=== PATIENT | female | born 1990 | race Caucasian/White ===

== ENCOUNTER 2023-10-16 09:30 | Outpatient (CLI) | payer OTHER ==
[~2023-10-16] VITALS: Ht 162.6 cm; Wt 98.6 kg
--- NOTE | 2023-10-16 06:25 | NUR ---
Pt arrived on unit ambulatory for scheduled induction of labor. Pt denies any regular contractions, leaking of fluid or vaginal bleeding and reports normal movement. EFM and toco monitors started. Vitals signs WNL. Plan of care for induction reviewed with pt and at the bedside.
[2023-10-16 07:00] VITALS: BP 131/87; PULSE 100
[2023-10-16 08:21] LABS: BASO # 0.1 K/mm3 (0.0-0.2); BASO % 0.9 % (0.0-2.0); EOS # 0.3 K/mm3 (0.0-0.7); EOS % 3.5 % (0.0-4.0); HEMOGLOBIN 11.7 g/dl (12.5-16.0); LYMPH # 2.2 K/mm3 (1.2-3.4); LYMPH % 26.5 % (20.0-51.0); MEAN CELL VOLUME 90 fl (80.0-100.0); MEAN CORPUSCULAR HEMOGLOBIN 29 pg (27-31); MEAN CORPUSCULAR HGB CONC 33 g/dl (33.0-37.0); MEAN PLATELET VOLUME 10.3 fl (7.4-10.4); MONO # 0.6 K/mm3 (0.1-0.6); MONO % 7.6 % (1.7-9.3); PLATELET COUNT 193 K/mm3 (130-400); REDCELL DISTRIBUTION WIDTH-CV 14.2 % (11.5-14.5)
--- NOTE | 2023-10-16 08:35 | NUR ---
Pt off EFM to the bathroom. Dr. Batista on the unit. FHR tracing reviewed. Update given with late start to pitocin infusion due to difficult IV start.
--- NOTE | 2023-10-16 08:42 | NUR ---
Dr. Batista at the bedside. SVE done. Bedside US done due to feeling a firm presenting part but unable to confirm vertex. Pitocin stopped. Dr. Batista reviewed options of attempting an external version or proceeding with a . Pt verbalized an understanding and requests to attempt a version.
--- NOTE | 2023-10-16 09:13 | NUR ---
0913- Dr. Batista at the bedside. Terbutaline given as ordered. See EMAR for details. Pt off EFM. 0914- Version attempted. 20- Version not successful but pt tolerated well. EFM started. Dr. Batista remained at the bedside and reviewed plan of care for monitoring for 30 mins post procedure and gave the option to discharge home with follow up in clinic or proceed with a today. Pt verbalized her request to discharge home and follow up in clinic. This RN and charge nurse remain at the bedside monitoring FHR tracing and audible movement noted. Signs of labor and when to return to the hospital reviewed with pt and . Both verbalized an understanding.
[2023-10-16 09:15] VITALS: TEMP 98.4
[2023-10-16 09:30] VITALS: BP 142/72; PULSE 79
[~2023-10-16 09:30] MED LIST: PRENATAL; PREVACID24HROTC
[2023-10-16 09:45] VITALS: BP 131/78; PULSE 75
[2023-10-16 10:00] VITALS: BP 132/74; PULSE 81
--- NOTE | 2023-10-16 10:25 | NUR ---
Discharge instructions, follow up care and labor precautions reviewed with pt and at the bedside. Both verbalized an understanding, agreed with plan and states no questions or concerns at this time.
== END 2023-10-16 10:25 | disposition home or self-care (01) ==
LOC: LDRO 09:30 → EDSTATUS 11:14 → OB 15:25
PROVIDERS: Obstetrics & Gynecology
DX: O32.1XX0 Maternal care for breech presentation, not applicable or unspecified (principal); Z3A.39 39 weeks gestation of pregnancy
CPT/HCPCS: J2590; J3105; J7120

== ENCOUNTER 2023-10-20 11:26 | Inpatient (IN) | payer OTHER ==
[~2023-10-20] VITALS: Ht 162.6 cm; Wt 98.6 kg
[2023-10-20] VITALS (19 sets, daily range): BP systolic 111–139; BP diastolic 59–92; PULSE 71–97; TEMP 97.7–98.7
--- NOTE | 2023-10-20 11:30 | NUR ---
265825.5, G3L2 arrives on unit with c/o of worsening ctx. Pt reports ctx started at 0400, and have become more intense over last 2 hours. Denies any LOF, or VB. Reports normal movement. 1134EFM placed by Angella Reyes RN and tracing well. Dr. Weaver on unit and to bedside. Bedside US by Dr. Weaver, cephalic presentation. SVE by provder /-1. AROM by SVE for thick meconium fluid. Ade care provided. Pt wedge left. Pt requesting epidural. 1145IV to left hand by Angella Reyes RN. IVF infusing. 1155Lab at bedside and labs drawn. Assessment completed. Consent forms explained and signed. 1220Page. Harmeet JEWEL STAKER at bedside for epidural placement. Pt to edge of bed. FRH tracing intermittently due to maternal position and habitus. 1240Epidural placed and test dose at this time by Garry Ga CRNA. Pt repositioned wedge left. Plan of care and safety precautions reviewed. Pt verbalizes understandig. Call light within reach. Questions invited and answered.
[2023-10-20] MEDS ORDERED: LR & Oxytocin 500 ML IV SCH (12:00)
[2023-10-20] MEDS ORDERED: LR 1,000 ML IV SCH (12:00)
[2023-10-20 12:17] LABS: BASO # 0.1 K/mm3 (0.0-0.2); BASO % 0.8 % (0.0-2.0); EOS # 0.3 K/mm3 (0.0-0.7); EOS % 3.7 % (0.0-4.0); GRAN # 5.4 K/mm3 (1.4-6.5); GRAN % 62.5 % (42.2-75.2); HEMOGLOBIN 11.5 g/dl (12.5-16.0); LYMPH # 2.1 K/mm3 (1.2-3.4); LYMPH % 23.7 % (20.0-51.0); MEAN CELL VOLUME 87 fl (80.0-100.0); MEAN CORPUSCULAR HEMOGLOBIN 29 pg (27-31); MEAN CORPUSCULAR HGB CONC 34 g/dl (33.0-37.0); MEAN PLATELET VOLUME 10.5 fl (7.4-10.4); MONO # 0.8 K/mm3 (0.1-0.6); MONO % 8.8 % (1.7-9.3); PLATELET COUNT 198 K/mm3 (130-400); RED BLOOD COUNT 3.95 M/mm3 (4.10-5.30); REDCELL DISTRIBUTION WIDTH-CV 14.2 % (11.5-14.5)
[2023-10-20] MEDS ORDERED: ROPivacaine PF 0.2% 200 ML IV ONE (12:21)
[2023-10-20 12:22] LABS: HEMATOCRIT 34.3 % (37.0-47.0)
[2023-10-20 12:26] LABS: ALBUMIN 2.8 gm/dL (3.5-5.0); BILIRUBIN,TOTAL 0.8 mg/dL (0.2-1.2); CALCIUM 8.8 mg/dL (8.4-10.2); CREATININE, serum 0.64 mg/dL (0.57-1.11); POTASSIUM 3.9 mmol/L (3.5-4.5); TOTAL PROTEIN 6.1 gm/dL (6.2-8.1)
[2023-10-20] MEDS ORDERED: Naloxone 0.4 MG/ML VIAL IV PRN ×2 (12:30→14:15)
[2023-10-20] MEDS ORDERED: diphenhydrAMINE 25 MG CAP PO PRN (12:30)
[2023-10-20] MEDS ORDERED: ePHEDrine 50 MG/10 ML VIAL IV PRN (12:30)
[2023-10-20] MEDS ORDERED: diphenhydrAMINE 50 MG/ML 1 ML VIAL IV PRN (12:30)
[2023-10-20] MEDS ORDERED: Ondansetron 4 MG/2 ML VIAL IV PRN (12:30)
--- NOTE | 2023-10-20 13:19 | NUR ---
1319SVE by Dr. Weaver /+2. Pt repostioned. Dr. Weaver remains on unit. 1405SVE by Dr. Weaver +3. Pt guided on pushing with contrations. 1406Pt pushes with one contraction with spontaneous vaginal delivery of viable male infant. To mother's chest where dried and stimulated by nursery RN. Nares and mouth bulb sutioned by Dr. Weaver. 1407Cord clamped and cut by Dr. Weaver. Care of assumed by Melissa Piedra RN. 1408 Spontaneous and intact delivery of placenta. Pitocin at 333ml/hr per orders. Straight cath by Dr. Weaver for 100ml urine. 1st degree perineal laceration repaired by provider. Fundus firm, midline, and bleeding minimal. Ade care provided, pads changed and ice pack to perineum. Plan of care and safety precautions reviewed. See anesthesia record, nurses notes, and doctor dictation. Call light within reach.
[2023-10-20] MEDS ORDERED: Mag/Al Hydrox/Simeth Susp 30 ML CUP PO PRN (14:15)
[2023-10-20] MEDS ORDERED: Loratadine 10 MG TAB PO PRN (14:15)
[2023-10-20] MEDS ORDERED: Phenylephrine/Mineral Oil/Petrolatum 57 GM TUBE RC PRN (14:15)
[2023-10-20] MEDS ORDERED: Measles/Mumps/Rubella Virus Vaccine Live w Diluent 0.5 ML VIAL SQ SCH (14:15)
[2023-10-20] MEDS ORDERED: Acetaminophen 500 MG TAB PO PRN (14:15)
[2023-10-20] MEDS ORDERED: Witch Hazel 50% Pads Bulk TUB TP PRN (14:15)
[2023-10-20] MEDS ORDERED: oxyCODONE 5 MG TAB PO PRN (14:15)
[2023-10-20] MEDS ORDERED: Magnes Hydrox (MOM) 80 MG/ML 30 ML CUP PO PRN (14:15)
[2023-10-20] MEDS ORDERED: Ibuprofen 800 MG TAB PO SCH (14:15)
[2023-10-20] MEDS ORDERED: Sennosides/Docusate 8.6-50 MG TAB PO SCH (17:00)
--- NOTE | 2023-10-20 17:00 | NUR ---
1700Fundus firm, midline, bleeding minimal. Pt able to move legs, but unable to lift and hold off bed for 3 seconds. Pt assisted to edge of bed. Denies any dizziness or lightheadedness. Epidural catheter removed. Assisted to stefani steady and to room 214 via stefani [employer]. Assisted to bed. Plan of care and safety precautions reviewed. Oriented to PP room. Call light within reach.
[2023-10-20] MEDS ORDERED: traZODone 50 MG TAB PO PRN (21:00)
[2023-10-21 02:00] VITALS: BP 120/66; PULSE 64; TEMP 98.4
[2023-10-21 07:30] VITALS: BP 129/84; PULSE 87; TEMP 98
[2023-10-21] MEDS ORDERED: MOTRIN 800800 MG/TAB PO (09:16)
[2023-10-21 12:00] VITALS: BP 136/83; PULSE 86; TEMP 98.2
== END 2023-10-21 15:45 | disposition home or self-care (01) | DRG 807 ==
LOC: LDRO 11:26 → LDR 11:30 → OB 17:00
PROVIDERS: Obstetrics & Gynecology; ADMIT Obstetrics & Gynecology
PROC: 10D07Z7 Extraction of Products of Conception, Internal Version, Via Natural or Artificial Opening (ICD-10-PCS; principal; 2023-10-20)
PROC: 0HQ9XZZ Repair Perineum Skin, External Approach (ICD-10-PCS; 2023-10-20)
DX: O77.0 Labor and delivery complicated by meconium in amniotic fluid (principal); Z37.0 Single live birth; O32.0XX0 Maternal care for unstable lie, not applicable or unspecified; O70.0 First degree perineal laceration during delivery; O99.62 Diseases of the digestive system complicating childbirth; K21.9 Gastro-esophageal reflux disease without esophagitis; O99.344 Other mental disorders complicating childbirth; F41.9 Anxiety disorder, unspecified; O99.214 Obesity complicating childbirth; Z3A.39 39 weeks gestation of pregnancy
CPT/HCPCS: J2590; J2795; J7120